=== PATIENT | female | born 1950 | race Caucasian/White ===

== ENCOUNTER → 2021-04-28 | Outpatient (CLI) | payer MEDICARE, OTHER ==
[~2021-04-28] MED LIST: AMOCLA875 PO; Adult Low Dose81 MG PO; Ambien10 MG PO; DULO60 PO; EPIPEN 2-P0.3 MG/0.3 IJ; FISH1000 PO; FLAX PO; INDERAL XL120 MG PO; LORA1 PO; MECL12.5 PO; MONT10T PO; MUPI2TC TOP; NAPR220 PO; Norvasc10 MG PO; OMEP20ER PO; PRED20 PO; VITAMIN D34000 UNIT PO; Voltaren100 GM TP
== END | disposition home or self-care (01) ==
LOC: LAB SHORT 15:13
DX: R30.0 Dysuria (principal)
CPT/HCPCS: 87077; 87086; 87186

== ENCOUNTER → 2022-06-22 | Outpatient (CLI) | payer MEDICARE | LOC: LAB 17:32 → LAB SHORT 17:32 | DX: R31.0 Gross hematuria (principal) | CPT/HCPCS: 87077; 87086; 87186 ==